=== PATIENT | male | born 1960 | race Caucasian/White ===

== ENCOUNTER 2017-10-31 13:39 | Emergency (ER) | payer MEDICARE, MEDICAID, SELFPAY ==
[2017-10-31 14:09] VITALS: BP 162/78; PULSE 86; RESP 14; TEMP 37.9; O2SAT 98; BMI 28.0
--- NOTE | 2017-10-31 15:57 | ED.LOWEXIN ---
HPI - Extremity Injury (Lower) <IFRAH Sol - Last Filed: 10/31/17 21:45> General Chief Complaint: Extremity Injury, Lower Stated Complaint: CUT ON RIGHT FOOT Time Seen by Provider: 10/31/17 15:57 History of Present Illness HPI Narrative: 57-year-old male with history of type 2 diabetes and renal failure here for complaint of redness to his right lower extremity. Patient has had history of diabetic neuropathy and noticed that he had a laceration to his ball of his right foot 2 days ago when he started noticing swelling to his right ankle. He reports that he has had chills and low-grade fever as well. He denies any drainage from the foot. Denies any trauma to the area. Patient is currently receiving dialysis due to the renal failure. No other concerns or complaints at this time. Related Data Home Medications Medication Instructions Recorded Confirmed acetaminophen-codeine 1 tab PO #0 06/25/16 amlodipine 10 mg PO QDAY #0 06/25/16 calcitriol [Rocaltrol] 0.25 mcg PO SEE INSTRUCTIONS #0 06/25/16 calcium acetate 667 mg PO SEE INSTRUCTIONS #0 06/25/16 metoprolol tartrate 100 mg PO BID #0 06/25/16 sodium bicarbonate 650 mg PO TID #0 06/25/16 vit B comp no.1-bjqlg-Y-biotin 1 tab PO #0 06/25/16 [Nephro-Melissa Rx] furosemide 80 mg PO BID #0 05/05/17 lisinopril 5 mg PO QDAY #0 05/05/17 Previous Rx's Medication Instructions Recorded clindamycin HCl 300 mg PO QID #28 cap 10/31/17 levofloxacin [Levaquin] 500 mg PO Q48H #3 tab 10/31/17 Allergies Allergy/AdvReac Type Severity Reaction Status Date / Time No Known Drug Allergies Allergy Verified 10/31/17 16:26 Review of Systems <IFRAH Sol - Last Filed: 10/31/17 21:45> Constitutional Reports chills and Reports fever(s) Eyes Denies change in vision, Denies eye discharge, Denies irritation and Denies loss of vision ENT Ears, Nose, Mouth, and Throat: Denies change in voice, Denies neck pain and Denies sore throat Cardiovascular Denies chest pain, Denies irregular heart rhythm, Denies lightheadedness, Denies palpitations, Denies dyspnea, Denies dyspnea on exertion and Denies orthopnea Respiratory Denies cough, Denies dyspnea, Denies dyspnea on exertion and Denies wheezing Gastrointestinal Gastrointestinal: Denies abdominal pain, Denies change in bowel habits, Denies diarrhea, Denies nausea and Denies vomiting Genitourinary Denies hematuria, Denies flank pain, Denies urinary incontinence and Denies urinary urgency Musculoskeletal Denies neck pain Comments: Laceration to right ball of foot and redness to the right foot ankle and to tib-fib area Integumentary/Breasts Denies pruritus, Denies erythema, Denies rash and Denies wounds Neurologic Denies confusion and Denies loss of vision Psychiatric Denies anxiety, Denies confusion, Denies depression, Denies homicidal ideation and Denies suicidal ideation Endocrine Denies palpitations Hematologic/Lymphatic Denies easy bruising Allergic/Immunologic Denies wheezing Exam <IFRAH Sol - Last Filed: 10/31/17 21:45> Initial Vital Signs Initial Vital Signs: Vital Signs Temperature 100.2 F H 10/31/17 14:09 Pulse Rate 86 10/31/17 14:09 Respiratory Rate 14 10/31/17 14:09 Blood Pressure 162/78 H 10/31/17 14:09 Pulse Oximetry 98 10/31/17 14:09 Const General: cooperative and well developed Nutritional Appearance: well nourished Orientation: alert, awake, oriented x3 and not confused [facility] Mouth: oral mucosae normal and moist mucous membranes Eyes Conjunctivae: conjunctivae normal Sclera: sclerae normal Pupils: PERRL EOM: EOM intact bilaterally Resp Effort & Inspection: normal respiratory effort, able to speak in complete sentences, no respiratory distress and no use of accessory muscles Auscultation: clear to auscultation bilaterally, no rales, no rhonchi and no wheezes Cardio Rate: regular rate Rhythm: regular rhythm Heart Sounds: no click, no gallops, no murmurs and no rubs Pulses: normal peripheral pulses GI Inspection: non-distended Palpation: soft, no hepatosplenomegaly, No guarding, No pulsatile mass and No tender Auscultation: normal bowel sounds General: No CVA tenderness Neuro General: alert and oriented x3 Speech: speech normal Extrem Other: 2 cm laceration to the right ball of foot. Slight erythema to the right foot and up the right leg into the tib-fib area. Distal cap refill less than 2 sec. Distal range of motion is intact. Distal sensation is decreased secondary to diabetic neuropathy <Shama Geronimo DO - Last Filed: 11/01/17 08:19> Initial Vital Signs Initial Vital Signs: Vital Signs Temperature 100.2 F H 10/31/17 14:09 Pulse Rate 86 10/31/17 14:09 Respiratory Rate 14 10/31/17 14:09 Blood Pressure 162/78 H 10/31/17 14:09 Pulse Oximetry 98 10/31/17 14:09 Course <IFRAH Sol - Last Filed: 10/31/17 21:45> Orders Ordered: Discontinued Medications Clindamycin Phosphate (Cleocin) 600 mg in 50 mls @ 50 mls/hr IV NOW ONE Stop: 10/31/17 17:17 Last Infusion: 10/31/17 17:57 Dose: 0 mls/hr Admin: 10/31/17 16:37 Dose: 50 mls/hr Levofloxacin (Levaquin) 750 mg PO NOW ONE Stop: 10/31/17 17:17 Last Admin: 10/31/17 17:23 Dose: 750 mg Vital Signs - 8 hr 10/31/17 14:09 10/31/17 16:06 10/31/17 18:00 Temperature 100.2 F H Pulse Rate 86 85 80 Respiratory Rate 14 17 18 Blood Pressure 162/78 H Blood Pressure [Left Arm] 136/75 H Blood Pressure [Right Arm] 153/68 H Pulse Oximetry 98 98 98 10/31/17 18:07 Temperature 98.6 F Pulse Rate Respiratory Rate Blood Pressure Blood Pressure [Left Arm] Blood Pressure [Right Arm] Pulse Oximetry <Shama Geronimo DO - Last Filed: 11/01/17 08:19> Orders Ordered: Discontinued Medications Clindamycin Phosphate (Cleocin) 600 mg in 50 mls @ 50 mls/hr IV NOW ONE Stop: 10/31/17 17:17 Last Infusion: 10/31/17 17:57 Dose: 0 mls/hr Admin: 10/31/17 16:37 Dose: 50 mls/hr Levofloxacin (Levaquin) 750 mg PO NOW ONE Stop: 10/31/17 17:17 Last Admin: 10/31/17 17:23 Dose: 750 mg Vital Signs - 8 hr 10/31/17 14:09 10/31/17 16:06 10/31/17 18:00 Temperature 100.2 F H Pulse Rate 86 85 80 Respiratory Rate 14 18 Blood Pressure 162/78 H Blood Pressure [Left Arm] 136/75 H Blood Pressure [Right Arm] 153/68 H Pulse Oximetry 98 98 98 10/31/17 18:07 Temperature 98.6 F Pulse Rate Respiratory Rate Blood Pressure Blood Pressure [Left Arm] Blood Pressure [Right Arm] Pulse Oximetry MDM - Extremity Injury (Lower) <IFRAH Sol - Last Filed: 10/31/17 21:45> Lab Data Result diagrams: 10/31/17 16:14 10/31/17 16:14 Lab Results 10/31/17 10/31/17 10/31/17 Range/Units 16:14 16:14 16:14 WBC 14.2 H (4.5-11.0) X10^3/uL RBC 2.98 L (4.5-5.9) X10^6/uL Hgb 9.1 L (13.5-17.5) g/dL Hct 27.9 L (41-53) % MCV 93.8 (80-100) fL MCH 30.6 (26-34) PG MCHC 32.6 (30-36) % RDW 14.0 (11.6-14.8) % Plt Count 183 (150-400) X10^3/uL Neut % (Auto) 85.3 H (50-75) % Lymph % (Auto) 4.6 L (25-40) % Grundy % (Auto) 9.5 (3-14) % Eos % (Auto) 0.3 L (2-4) % Baso % (Auto) 0.3 (0-2) % Neut # (Auto) 31187 H (2466-9478) /uL Sodium 138 (137-145) mmol/L Potassium 4.7 (3.4-5.1) mmol/L Chloride 97 L (98-107) mmol/L Carbon Dioxide 26 (22-32) mmol/L BUN 73 H (9-20) mg/dL Creatinine 10.70 H* (0.66-1.25) mg/dL Estimated GFR 5.0 L (>60) mL/min BUN/Creatinine Ratio 6.8 (6-22) Glucose 127 H (70-100) mg/dL Lactate (0.7-2.1) mmol/L Calcium 8.5 (8.4-10.2) mg/dL Total Bilirubin 0.6 (0.2-1.3) mg/dL AST 12 L (17-59) IU/L ALT 17 L (21-72) IU/L Alkaline Phosphatase 80 (38-126) U/L Total Protein 7.1 (6.3-8.2) g/dL Albumin 3.9 (3.5-5.0) g/dL Globulin 3.2 (1.7-4.1) g/dL Albumin/Globulin Ratio 1.2 (1.0-2.8) Procalcitonin 0.93 H (<0.5) ng/mL 10/31/17 Range/Units 16:14 WBC (4.5-11.0) X10^3/uL RBC (4.5-5.9) X10^6/uL Hgb (13.5-17.5) g/dL Hct (41-53) % MCV (80-100) fL MCH (26-34) PG MCHC (30-36) % RDW (11.6-14.8) % Plt Count (150-400) X10^3/uL Neut % (Auto) (50-75) % Lymph % (Auto) (25-40) % Grundy % (Auto) (3-14) % Eos % (Auto) (2-4) % Baso % (Auto) (0-2) % Neut # (Auto) (9750-1443) /uL Sodium (137-145) mmol/L Potassium (3.4-5.1) mmol/L Chloride (98-107) mmol/L Carbon Dioxide (22-32) mmol/L BUN (9-20) mg/dL Creatinine (0.66-1.25) mg/dL Estimated GFR (>60) mL/min BUN/Creatinine Ratio (6-22) Glucose (70-100) mg/dL Lactate 0.6 L (0.7-2.1) mmol/L Calcium (8.4-10.2) mg/dL Total Bilirubin (0.2-1.3) mg/dL AST (17-59) IU/L ALT (21-72) IU/L Alkaline Phosphatase (38-126) U/L Total Protein (6.3-8.2) g/dL Albumin (3.5-5.0) g/dL Globulin (1.7-4.1) g/dL Albumin/Globulin Ratio (1.0-2.8) Procalcitonin (<0.5) ng/mL Imaging Data foot: Radiologist's impression: Patient: Juan Fried MR#: [id number] : 1960 Acct:[id number] Age/Sex: 57 / M Date of Service: 10/31/17 Loc: ED Accession Number: [id number] Procedure: XR foot RT min 3V Ordering Provider: Victor Hugo Pedro PROCEDURE: XR FOOT RT MIN 3V INDICATIONS: possible right foot injury,wound,neuropathy of feet TECHNIQUE: 3 views of the foot were acquired. COMPARISON: None. FINDINGS: Bones: No fractures or dislocations. No suspicious bony lesions. Posterior calcaneal spurring Soft tissues: No tibiotalar joint effusion. Achilles tendon appears normal. There are extensive vascular calcifications. IMPRESSION: No fracture or focal osseous destruction. Posterior calcaneal spur. Extensive vascular calcifications. Dictated by: Eber Guillen M.D. on 10/31/2017 at 17:39 Approved by: Eber Guillen M.D. on 10/31/2017 at 17:57 [facility] Narrative Medical decision making narrative: Signs and symptoms presents as starting cellulitis to the right lower extremity secondary to a laceration to his ball of his foot from a unknown origin. Laceration to his foot is dressed with bacitracin and dressing. Patient states his tetanus is up-to-date. He was treated with IV clindamycin and oral Levaquin. Will try oral antibiotics with close follow-up. He is prescribed oral clindamycin and also Levaquin orally with Levaquin dosing based on his GFR which was obtained today and is 10. Recommend podiatry referral patient is instructed to follow up with his primary care provider in the next day or 2 for re-evaluation and podiatry referral. Blood cultures and wound cultures are pending. [id number] Tylenol as needed for any discomfort. For any worsening symptoms return to the emergency room. <Shama Grazyna, DO - Last Filed: 11/01/17 08:19> Lab Data Lab Results 10/31/17 10/31/17 10/31/17 Range/Units 16:14 16:14 16:14 WBC 14.2 H (4.5-11.0) X10^3/uL RBC 2.98 L (4.5-5.9) X10^6/uL Hgb 9.1 L (13.5-17.5) g/dL Hct 27.9 L (41-53) % MCV 93.8 (80-100) fL MCH 30.6 (26-34) PG MCHC 32.6 (30-36) % RDW 14.0 (11.6-14.8) % Plt Count 183 (150-400) X10^3/uL Neut % (Auto) 85.3 H (50-75) % Lymph % (Auto) 4.6 L (25-40) % Grundy % (Auto) 9.5 (3-14) % Eos % (Auto) 0.3 L (2-4) % Baso % (Auto) 0.3 (0-2) % Neut # (Auto) 14986 H (2813-9063) /uL Sodium 138 (137-145) mmol/L Potassium 4.7 (3.4-5.1) mmol/L Chloride 97 L (98-107) mmol/L Carbon Dioxide 26 (22-32) mmol/L BUN 73 H (9-20) mg/dL Creatinine 10.70 H* (0.66-1.25) mg/dL Estimated GFR 5.0 L (>60) mL/min BUN/Creatinine Ratio 6.8 (6-22) Glucose 127 H (70-100) mg/dL Lactate (0.7-2.1) mmol/L Calcium 8.5 (8.4-10.2) mg/dL Total Bilirubin 0.6 (0.2-1.3) mg/dL AST 12 L (17-59) IU/L ALT 17 L (21-72) IU/L Alkaline Phosphatase 80 (38-126) U/L Total Protein 7.1 (6.3-8.2) g/dL Albumin 3.9 (3.5-5.0) g/dL Globulin 3.2 (1.7-4.1) g/dL Albumin/Globulin Ratio 1.2 (1.0-2.8) Procalcitonin 0.93 H (<0.5) ng/mL 10/31/17 Range/Units 16:14 WBC (4.5-11.0) X10^3/uL RBC (4.5-5.9) X10^6/uL Hgb (13.5-17.5) g/dL Hct (41-53) % MCV (80-100) fL MCH (26-34) PG MCHC (30-36) % RDW (11.6-14.8) % Plt Count (150-400) X10^3/uL Neut % (Auto) (50-75) % Lymph % (Auto) (25-40) % Grundy % (Auto) (3-14) % Eos % (Auto) (2-4) % Baso % (Auto) (0-2) % Neut # (Auto) (4923-3176) /uL Sodium (137-145) mmol/L Potassium (3.4-5.1) mmol/L Chloride (98-107) mmol/L Carbon Dioxide (22-32) mmol/L BUN (9-20) mg/dL Creatinine (0.66-1.25) mg/dL Estimated GFR (>60) mL/min BUN/Creatinine Ratio (6-22) Glucose (70-100) mg/dL Lactate 0.6 L (0.7-2.1) mmol/L Calcium (8.4-10.2) mg/dL Total Bilirubin (0.2-1.3) mg/dL AST (17-59) IU/L ALT (21-72) IU/L Alkaline Phosphatase (38-126) U/L Total Protein (6.3-8.2) g/dL Albumin (3.5-5.0) g/dL Globulin (1.7-4.1) g/dL Albumin/Globulin Ratio (1.0-2.8) Procalcitonin (<0.5) ng/mL Discharge Plan Departure Patient Disposition: Home, Self-Care Clinical Impression: Cellulitis of right lower extremity Discharge Date/Time: 07/18/18 18:42 Interventions: ED Discharge Assessment Last Done: 10/31/17 18:42 Instructions: DI for Cellulitis -- Adult Activity Restrictions/Additional Instructions: Signs and symptoms presents starting infection call cellulitis to the right lower leg. You have been placed on antibiotics use as directed. Close follow up with her primary care provider in the next day or 2 for re-evaluation to ensure you are improving. Use [id number] Tylenol as needed for any discomfort. Recommend podiatry referral when you talk with her primary care provider. For any worsening symptoms return to the emergency room. Prescriptions: New clindamycin HCl 300 mg capsule 300 mg PO QID Qty: 28 RF: 0 levofloxacin [Levaquin] 500 mg tablet 500 mg PO Q48H Qty: 3 RF: 0 No Action acetaminophen-codeine 30 MG/300 MG tablet 1 tab PO Qty: 0 RF: 0 calcitriol [Rocaltrol] 0.25 MCG capsule 0.25 mcg PO SEE INSTRUCTIONS Qty: 0 RF: 0 metoprolol tartrate 100 MG tablet 100 mg PO BID Qty: 0 RF: 0 vit B comp no.9-rvuxb-E-biotin [Nephro-Melissa Rx] 1 EACH tablet 1 tab PO Qty: 0 RF: 0 sodium bicarbonate 650 MG tablet 650 mg PO TID Qty: 0 RF: 0 amlodipine 10 MG tablet 10 mg PO QDAY Qty: 0 RF: 0 calcium acetate 667 MG capsule 667 mg PO SEE INSTRUCTIONS Qty: 0 RF: 0 furosemide 40 MG tablet 80 mg PO BID Qty: 0 RF: 0 lisinopril 5 MG tablet 5 mg PO QDAY Qty: 0 RF: 0 Referrals: Daivd Wilson MD [Primary Care Provider] - <Shama Geronimo DO - Last Filed: 11/01/17 08:19> [facility] ED Attending Ralf Attestation: I was immediately available in the department for consultation. Documentation has been reviewed. I agree with assessment and plan.
[2017-10-31 16:06] VITALS: BP 153/68; PULSE 85; RESP 17; O2SAT 98
[2017-10-31 16:31] LABS: Add Manual Diff / Slide Review NO; Basophils Percent Auto 0.3 % (0-2); Eosinophils Percent Auto 0.3 % (2-4); Hematocrit 27.9 % (41-53); Hemoglobin 9.1 g/dL (13.5-17.5); Lymphocytes Percent Auto 4.6 % (25-40); Mean Corpuscular HGB Conc 32.6 % (30-36); Mean Corpuscular Hemoglobin 30.6 PG (26-34); Mean Corpuscular Volume 93.8 fL (80-100); Monocytes Percent Auto 9.5 % (3-14); Neutrophils Absolute Auto 12100 /uL (3000-5900); Neutrophils Percent Auto 85.3 % (50-75); Platelet Count 183 X10^3/uL (150-400); Red Blood Cell Count 2.98 X10^6/uL (4.5-5.9); White Blood Cell Count 14.2 X10^3/uL (4.5-11.0)
[2017-10-31] MEDS: CLINDAMYCIN 600 MG/50 ML PIGGYBACK 50 MG IV (16:37)
[2017-10-31 16:46] LABS: Alanine Aminotransferase 17 IU/L (21-72); Albumin 3.9 g/dL (3.5-5.0); Albumin Globulin Ratio 1.2 (1.0-2.8); Alkaline Phosphatase 80 U/L (38-126); Aspartate Aminotransferase 12 IU/L (17-59); BUN Creatinine Ratio 6.8 (6-22); Bilirubin Total 0.6 mg/dL (0.2-1.3); Blood Urea Nitrogen 73 mg/dL (9-20); Calcium 8.5 mg/dL (8.4-10.2); Carbon Dioxide 26 mmol/L (22-32); Chloride 97 mmol/L (98-107); Globulin 3.2 g/dL (1.7-4.1); Glucose 127 mg/dL (70-100); HEMOLYSIS < 15 (0-50); Potassium 4.7 mmol/L (3.4-5.1); Sodium 138 mmol/L (137-145); Total Protein 7.1 g/dL (6.3-8.2)
[2017-10-31 16:47] LABS: Lactate (Lactic Acid) 0.6 mmol/L (0.7-2.1)
[2017-10-31 16:56] LABS: Procalcitonin 0.93 ng/mL (<0.5)
--- NOTE | 2017-10-31 17:07 | DI.RAD.S_ITS ---
PROCEDURE: XR FOOT RT MIN 3V INDICATIONS: possible right foot injury,wound,neuropathy of feet TECHNIQUE: 3 views of the foot were acquired. COMPARISON: None. FINDINGS: Bones: No fractures or dislocations. No suspicious bony lesions. Posterior calcaneal spurring Soft tissues: No tibiotalar joint effusion. Achilles tendon appears normal. There are extensive vascular calcifications. IMPRESSION: No fracture or focal osseous destruction. Posterior calcaneal spur. Extensive vascular calcifications. Dictated by: Eber Guillen M.D. on 10/31/2017 at 17:39 Approved by: Eber Guillen M.D. on 10/31/2017 at 17:57
[2017-10-31] MEDS: levoFLOXacin 250 MG TABLET 750 MG PO (17:23)
--- NOTE | 2017-10-31 17:52 | ED_ITS ---
HPI - Extremity Injury (Lower) <IFRAH Sol - Last Filed: 10/31/17 21:45> General Chief Complaint: Extremity Injury, Lower Stated Complaint: CUT ON RIGHT FOOT Time Seen by Provider: 10/31/17 15:57 History of Present Illness HPI Narrative: 57-year-old male with history of type 2 diabetes and renal failure here for complaint of redness to his right lower extremity. Patient has had history of diabetic neuropathy and noticed that he had a laceration to his ball of his right foot 2 days ago when he started noticing swelling to his right ankle. He reports that he has had chills and low-grade fever as well. He denies any drainage from the foot. Denies any trauma to the area. Patient is currently receiving dialysis due to the renal failure. No other concerns or complaints at this time. Related Data Home Medications Medication Instructions Recorded Confirmed acetaminophen-codeine 1 tab PO #0 06/25/16 amlodipine 10 mg PO QDAY #0 06/25/16 calcitriol [Rocaltrol] 0.25 mcg PO SEE INSTRUCTIONS #0 06/25/16 calcium acetate 667 mg PO SEE INSTRUCTIONS #0 06/25/16 metoprolol tartrate 100 mg PO BID #0 06/25/16 sodium bicarbonate 650 mg PO TID #0 06/25/16 vit B comp no.0-spkbo-M-biotin 1 tab PO #0 06/25/16 [Nephro-Melissa Rx] furosemide 80 mg PO BID #0 05/05/17 lisinopril 5 mg PO QDAY #0 05/05/17 Previous Rx's Medication Instructions Recorded clindamycin HCl 300 mg PO QID #28 cap 10/31/17 levofloxacin [Levaquin] 500 mg PO Q48H #3 tab 10/31/17 Allergies Allergy/AdvReac Type Severity Reaction Status Date / Time No Known Drug Allergies Allergy Verified 10/31/17 16:26 Review of Systems <IFRAH Sol - Last Filed: 10/31/17 21:45> Constitutional Reports chills and Reports fever(s) Eyes Denies change in vision, Denies eye discharge, Denies irritation and Denies loss of vision ENT Ears, Nose, Mouth, and Throat: Denies change in voice, Denies neck pain and Denies sore throat Cardiovascular Denies chest pain, Denies irregular heart rhythm, Denies lightheadedness, Denies palpitations, Denies dyspnea, Denies dyspnea on exertion and Denies orthopnea Respiratory Denies cough, Denies dyspnea, Denies dyspnea on exertion and Denies wheezing Gastrointestinal Gastrointestinal: Denies abdominal pain, Denies change in bowel habits, Denies diarrhea, Denies nausea and Denies vomiting Genitourinary Denies hematuria, Denies flank pain, Denies urinary incontinence and Denies urinary urgency Musculoskeletal Denies neck pain Comments: Laceration to right ball of foot and redness to the right foot ankle and to tib-fib area Integumentary/Breasts Denies pruritus, Denies erythema, Denies rash and Denies wounds Neurologic Denies confusion and Denies loss of vision Psychiatric Denies anxiety, Denies confusion, Denies depression, Denies homicidal ideation and Denies suicidal ideation Endocrine Denies palpitations Hematologic/Lymphatic Denies easy bruising Allergic/Immunologic Denies wheezing Exam <IFRAH Sol - Last Filed: 10/31/17 21:45> Initial Vital Signs Initial Vital Signs: Vital Signs Temperature 100.2 F H 10/31/17 14:09 Pulse Rate 86 10/31/17 14:09 Respiratory Rate 14 10/31/17 14:09 Blood Pressure 162/78 H 10/31/17 14:09 Pulse Oximetry 98 10/31/17 14:09 Const General: cooperative and well developed Nutritional Appearance: well nourished Orientation: alert, awake, oriented x3 and not confused [facility] Mouth: oral mucosae normal and moist mucous membranes Eyes Conjunctivae: conjunctivae normal Sclera: sclerae normal Pupils: PERRL EOM: EOM intact bilaterally Resp Effort & Inspection: normal respiratory effort, able to speak in complete sentences, no respiratory distress and no use of accessory muscles Auscultation: clear to auscultation bilaterally, no rales, no rhonchi and no wheezes Cardio Rate: regular rate Rhythm: regular rhythm Heart Sounds: no click, no gallops, no murmurs and no rubs Pulses: normal peripheral pulses GI Inspection: non-distended Palpation: soft, no hepatosplenomegaly, No guarding, No pulsatile mass and No tender Auscultation: normal bowel sounds General: No CVA tenderness Neuro General: alert and oriented x3 Speech: speech normal Extrem Other: 2 cm laceration to the right ball of foot. Slight erythema to the right foot and up the right leg into the tib-fib area. Distal cap refill less than 2 sec. Distal range of motion is intact. Distal sensation is decreased secondary to diabetic neuropathy <Shama Geronimo DO - Last Filed: 11/01/17 08:19> Initial Vital Signs Initial Vital Signs: Vital Signs Temperature 100.2 F H 10/31/17 14:09 Pulse Rate 86 10/31/17 14:09 Respiratory Rate 14 10/31/17 14:09 Blood Pressure 162/78 H 10/31/17 14:09 Pulse Oximetry 98 10/31/17 14:09 Course <IFRAH Sol - Last Filed: 10/31/17 21:45> Orders Ordered: Discontinued Medications Clindamycin Phosphate (Cleocin) 600 mg in 50 mls @ 50 mls/hr IV NOW ONE Stop: 10/31/17 17:17 Last Infusion: 10/31/17 17:57 Dose: 0 mls/hr Admin: 10/31/17 16:37 Dose: 50 mls/hr Levofloxacin (Levaquin) 750 mg PO NOW ONE Stop: 10/31/17 17:17 Last Admin: 10/31/17 17:23 Dose: 750 mg Vital Signs - 8 hr 10/31/17 14:09 10/31/17 16:06 10/31/17 18:00 Temperature 100.2 F H Pulse Rate 86 85 80 Respiratory Rate 14 17 18 Blood Pressure 162/78 H Blood Pressure [Left Arm] 136/75 H Blood Pressure [Right Arm] 153/68 H Pulse Oximetry 98 98 98 10/31/17 18:07 Temperature 98.6 F Pulse Rate Respiratory Rate Blood Pressure Blood Pressure [Left Arm] Blood Pressure [Right Arm] Pulse Oximetry <Shama Geronimo DO - Last Filed: 11/01/17 08:19> Orders Ordered: Discontinued Medications Clindamycin Phosphate (Cleocin) 600 mg in 50 mls @ 50 mls/hr IV NOW ONE Stop: 10/31/17 17:17 Last Infusion: 10/31/17 17:57 Dose: 0 mls/hr Admin: 10/31/17 16:37 Dose: 50 mls/hr Levofloxacin (Levaquin) 750 mg PO NOW ONE Stop: 10/31/17 17:17 Last Admin: 10/31/17 17:23 Dose: 750 mg Vital Signs - 8 hr 10/31/17 14:09 10/31/17 16:06 10/31/17 18:00 Temperature 100.2 F H Pulse Rate 86 85 80 Respiratory Rate 14 18 Blood Pressure 162/78 H Blood Pressure [Left Arm] 136/75 H Blood Pressure [Right Arm] 153/68 H Pulse Oximetry 98 98 98 10/31/17 18:07 Temperature 98.6 F Pulse Rate Respiratory Rate Blood Pressure Blood Pressure [Left Arm] Blood Pressure [Right Arm] Pulse Oximetry MDM - Extremity Injury (Lower) <IFRAH Sol - Last Filed: 10/31/17 21:45> Lab Data Result diagrams: 10/31/17 16:14 10/31/17 16:14 Lab Results 10/31/17 10/31/17 10/31/17 Range/Units 16:14 16:14 16:14 WBC 14.2 H (4.5-11.0) X10^3/uL RBC 2.98 L (4.5-5.9) X10^6/uL Hgb 9.1 L (13.5-17.5) g/dL Hct 27.9 L (41-53) % MCV 93.8 (80-100) fL MCH 30.6 (26-34) PG MCHC 32.6 (30-36) % RDW 14.0 (11.6-14.8) % Plt Count 183 (150-400) X10^3/uL Neut % (Auto) 85.3 H (50-75) % Lymph % (Auto) 4.6 L (25-40) % Miller % (Auto) 9.5 (3-14) % Eos % (Auto) 0.3 L (2-4) % Baso % (Auto) 0.3 (0-2) % Neut # (Auto) 76161 H (4482-1233) /uL Sodium 138 (137-145) mmol/L Potassium 4.7 (3.4-5.1) mmol/L Chloride 97 L (98-107) mmol/L Carbon Dioxide 26 (22-32) mmol/L BUN 73 H (9-20) mg/dL Creatinine 10.70 H* (0.66-1.25) mg/dL Estimated GFR 5.0 L (>60) mL/min BUN/Creatinine Ratio 6.8 (6-22) Glucose 127 H (70-100) mg/dL Lactate (0.7-2.1) mmol/L Calcium 8.5 (8.4-10.2) mg/dL Total Bilirubin 0.6 (0.2-1.3) mg/dL AST 12 L (17-59) IU/L ALT 17 L (21-72) IU/L Alkaline Phosphatase 80 (38-126) U/L Total Protein 7.1 (6.3-8.2) g/dL Albumin 3.9 (3.5-5.0) g/dL Globulin 3.2 (1.7-4.1) g/dL Albumin/Globulin Ratio 1.2 (1.0-2.8) Procalcitonin 0.93 H (<0.5) ng/mL 10/31/17 Range/Units 16:14 WBC (4.5-11.0) X10^3/uL RBC (4.5-5.9) X10^6/uL Hgb (13.5-17.5) g/dL Hct (41-53) % MCV (80-100) fL MCH (26-34) PG MCHC (30-36) % RDW (11.6-14.8) % Plt Count (150-400) X10^3/uL Neut % (Auto) (50-75) % Lymph % (Auto) (25-40) % Miller % (Auto) (3-14) % Eos % (Auto) (2-4) % Baso % (Auto) (0-2) % Neut # (Auto) (1983-5839) /uL Sodium (137-145) mmol/L Potassium (3.4-5.1) mmol/L Chloride (98-107) mmol/L Carbon Dioxide (22-32) mmol/L BUN (9-20) mg/dL Creatinine (0.66-1.25) mg/dL Estimated GFR (>60) mL/min BUN/Creatinine Ratio (6-22) Glucose (70-100) mg/dL Lactate 0.6 L (0.7-2.1) mmol/L Calcium (8.4-10.2) mg/dL Total Bilirubin (0.2-1.3) mg/dL AST (17-59) IU/L ALT (21-72) IU/L Alkaline Phosphatase (38-126) U/L Total Protein (6.3-8.2) g/dL Albumin (3.5-5.0) g/dL Globulin (1.7-4.1) g/dL Albumin/Globulin Ratio (1.0-2.8) Procalcitonin (<0.5) ng/mL Imaging Data foot: Radiologist's impression: Patient: Juan Fried MR#: [id number] : 1960 Acct:[id number] Age/Sex: 57 / M Date of Service: 10/31/17 Loc: ED Accession Number: [id number] Procedure: XR foot RT min 3V Ordering Provider: Victor Hugo ePdro PROCEDURE: XR FOOT RT MIN 3V INDICATIONS: possible right foot injury,wound,neuropathy of feet TECHNIQUE: 3 views of the foot were acquired. COMPARISON: None. FINDINGS: Bones: No fractures or dislocations. No suspicious bony lesions. Posterior calcaneal spurring Soft tissues: No tibiotalar joint effusion. Achilles tendon appears normal. There are extensive vascular calcifications. IMPRESSION: No fracture or focal osseous destruction. Posterior calcaneal spur. Extensive vascular calcifications. Dictated by: Eber Guillen M.D. on 10/31/2017 at 17:39 Approved by: Eber Guillen M.D. on 10/31/2017 at 17:57 [facility] Narrative Medical decision making narrative: Signs and symptoms presents as starting cellulitis to the right lower extremity secondary to a laceration to his ball of his foot from a unknown origin. Laceration to his foot is dressed with bacitracin and dressing. Patient states his tetanus is up-to-date. He was treated with IV clindamycin and oral Levaquin. Will try oral antibiotics with close follow-up. He is prescribed oral clindamycin and also Levaquin orally with Levaquin dosing based on his GFR which was obtained today and is 10. Recommend podiatry referral patient is instructed to follow up with his primary care provider in the next day or 2 for re-evaluation and podiatry referral. Blood cultures and wound cultures are pending. [id number] Tylenol as needed for any discomfort. For any worsening symptoms return to the emergency room. <Shama Grazyna, DO - Last Filed: 11/01/17 08:19> Lab Data Lab Results 10/31/17 10/31/17 10/31/17 Range/Units 16:14 16:14 16:14 WBC 14.2 H (4.5-11.0) X10^3/uL RBC 2.98 L (4.5-5.9) X10^6/uL Hgb 9.1 L (13.5-17.5) g/dL Hct 27.9 L (41-53) % MCV 93.8 (80-100) fL MCH 30.6 (26-34) PG MCHC 32.6 (30-36) % RDW 14.0 (11.6-14.8) % Plt Count 183 (150-400) X10^3/uL Neut % (Auto) 85.3 H (50-75) % Lymph % (Auto) 4.6 L (25-40) % Miller % (Auto) 9.5 (3-14) % Eos % (Auto) 0.3 L (2-4) % Baso % (Auto) 0.3 (0-2) % Neut # (Auto) 06353 H (9543-3346) /uL Sodium 138 (137-145) mmol/L Potassium 4.7 (3.4-5.1) mmol/L Chloride 97 L (98-107) mmol/L Carbon Dioxide 26 (22-32) mmol/L BUN 73 H (9-20) mg/dL Creatinine 10.70 H* (0.66-1.25) mg/dL Estimated GFR 5.0 L (>60) mL/min BUN/Creatinine Ratio 6.8 (6-22) Glucose 127 H (70-100) mg/dL Lactate (0.7-2.1) mmol/L Calcium 8.5 (8.4-10.2) mg/dL Total Bilirubin 0.6 (0.2-1.3) mg/dL AST 12 L (17-59) IU/L ALT 17 L (21-72) IU/L Alkaline Phosphatase 80 (38-126) U/L Total Protein 7.1 (6.3-8.2) g/dL Albumin 3.9 (3.5-5.0) g/dL Globulin 3.2 (1.7-4.1) g/dL Albumin/Globulin Ratio 1.2 (1.0-2.8) Procalcitonin 0.93 H (<0.5) ng/mL 10/31/17 Range/Units 16:14 WBC (4.5-11.0) X10^3/uL RBC (4.5-5.9) X10^6/uL Hgb (13.5-17.5) g/dL Hct (41-53) % MCV (80-100) fL MCH (26-34) PG MCHC (30-36) % RDW (11.6-14.8) % Plt Count (150-400) X10^3/uL Neut % (Auto) (50-75) % Lymph % (Auto) (25-40) % Miller % (Auto) (3-14) % Eos % (Auto) (2-4) % Baso % (Auto) (0-2) % Neut # (Auto) (7580-2896) /uL Sodium (137-145) mmol/L Potassium (3.4-5.1) mmol/L Chloride (98-107) mmol/L Carbon Dioxide (22-32) mmol/L BUN (9-20) mg/dL Creatinine (0.66-1.25) mg/dL Estimated GFR (>60) mL/min BUN/Creatinine Ratio (6-22) Glucose (70-100) mg/dL Lactate 0.6 L (0.7-2.1) mmol/L Calcium (8.4-10.2) mg/dL Total Bilirubin (0.2-1.3) mg/dL AST (17-59) IU/L ALT (21-72) IU/L Alkaline Phosphatase (38-126) U/L Total Protein (6.3-8.2) g/dL Albumin (3.5-5.0) g/dL Globulin (1.7-4.1) g/dL Albumin/Globulin Ratio (1.0-2.8) Procalcitonin (<0.5) ng/mL Discharge Plan Departure Patient Disposition: Home, Self-Care Clinical Impression: Cellulitis of right lower extremity Discharge Date/Time: 07/18/18 18:42 Interventions: ED Discharge Assessment Last Done: 10/31/17 18:42 Instructions: DI for Cellulitis -- Adult Activity Restrictions/Additional Instructions: Signs and symptoms presents starting infection call cellulitis to the right lower leg. You have been placed on antibiotics use as directed. Close follow up with her primary care provider in the next day or 2 for re-evaluation to ensure you are improving. Use [id number] Tylenol as needed for any discomfort. Recommend podiatry referral when you talk with her primary care provider. For any worsening symptoms return to the emergency room. Prescriptions: New clindamycin HCl 300 mg capsule 300 mg PO QID Qty: 28 RF: 0 levofloxacin [Levaquin] 500 mg tablet 500 mg PO Q48H Qty: 3 RF: 0 No Action acetaminophen-codeine 30 MG/300 MG tablet 1 tab PO Qty: 0 RF: 0 calcitriol [Rocaltrol] 0.25 MCG capsule 0.25 mcg PO SEE INSTRUCTIONS Qty: 0 RF: 0 metoprolol tartrate 100 MG tablet 100 mg PO BID Qty: 0 RF: 0 vit B comp no.6-djthj-J-biotin [Nephro-Melissa Rx] 1 EACH tablet 1 tab PO Qty: 0 RF: 0 sodium bicarbonate 650 MG tablet 650 mg PO TID Qty: 0 RF: 0 amlodipine 10 MG tablet 10 mg PO QDAY Qty: 0 RF: 0 calcium acetate 667 MG capsule 667 mg PO SEE INSTRUCTIONS Qty: 0 RF: 0 furosemide 40 MG tablet 80 mg PO BID Qty: 0 RF: 0 lisinopril 5 MG tablet 5 mg PO QDAY Qty: 0 RF: 0 Referrals: David Wilson MD [Primary Care Provider] - <Shama Geronimo DO - Last Filed: 11/01/17 08:19> [facility] ED Attending Ralf Attestation: I was immediately available in the department for consultation. Documentation has been reviewed. I agree with assessment and plan.
[2017-10-31 18:00] VITALS: BP 136/75; PULSE 80; RESP 18; O2SAT 98
[2017-10-31 18:07] VITALS: TEMP 37
== END 2017-10-31 18:42 | disposition home or self-care (01) ==
PROVIDERS: Emergency Provider Nurse Practitioner Family; PCP Specialist
DX: L03.115 Cellulitis of right lower limb (principal); E11.9 Type 2 diabetes mellitus without complications
CPT/HCPCS: 36415; 36591; 73630; 80053; 83605; 84145; 85025; 87040; 87070; 87075; 87077; 87147; 87186; 87205; 96374; 99283; 99284

== ENCOUNTER 2018-07-23 13:43 | Emergency (ER) | payer MEDICARE, MEDICAID, SELFPAY ==
[2018-07-23 13:54] VITALS: BP 153/63; PULSE 70; RESP 18; TEMP 36.7; O2SAT 96; BMI 29.5
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
[2018-07-23 16:37] VITALS: BP 185/50; PULSE 71; RESP 17; O2SAT 99
== END 2018-07-23 16:51 | disposition home or self-care (01) ==
PROVIDERS: Emergency Provider Emergency Medicine; PCP Specialist
DX: T25.032A Burn of unspecified degree of left toe(s) (nail), initial encounter (principal)
CPT/HCPCS: 99282

== ENCOUNTER → 2018-07-25 14:11 | Outpatient (CLI) | payer MEDICARE, MEDICAID, SELFPAY | PROVIDERS: PCP Specialist; Visit Provider Family Medicine | DX: E11.621 Type 2 diabetes mellitus with foot ulcer (principal); N18.6 End stage renal disease; Z99.2 Dependence on renal dialysis; T25.332A Burn of third degree of left toe(s) (nail), initial encounter | CPT/HCPCS: 16020; 99203; 99213 ==

== ENCOUNTER → 2018-08-01 09:59 | Outpatient (CLI) | payer MEDICARE, MEDICAID, SELFPAY | PROVIDERS: PCP Specialist; Visit Provider Family Medicine | DX: T25.332A Burn of third degree of left toe(s) (nail), initial encounter (principal); L03.116 Cellulitis of left lower limb; N18.6 End stage renal disease; Z99.2 Dependence on renal dialysis | CPT/HCPCS: 16020; 73630; 87070; 87075; 87186; 87205; 99214 ==

== ENCOUNTER → 2018-08-01 14:34 | Outpatient (CLI) | payer MEDICARE, MEDICAID, SELFPAY ==
--- NOTE | 2018-08-01 | DI.RAD.S_ITS ---
PROCEDURE: XR FOOT LT MIN 3V INDICATIONS: L FOOT EVAL FOR OSTEOMYELITIS TECHNIQUE: 3 views of the foot were acquired. COMPARISON: [facility], CR, XR FOOT RT MIN 3V, 10/31/2017, 17:11. FINDINGS: Bones: No fractures or dislocations. No suspicious bony lesions. No area of osteolytic change is seen with evidence of osteomyelitis. Small vessel calcifications are present, consistent with long-standing diabetes. An area of cutaneous ulceration or gas within the soft tissues cannot be definitively identified but the posterior calcaneal soft tissues appear slightly thinned near the Achilles tendon insertion. Soft tissues: No tibiotalar joint effusion. Achilles tendon appears normal. IMPRESSION: Small vessel calcifications are prominent, long-standing diabetes is presumed. No osteomyelitis or trauma is found. Dictated by: Josias Albert M.D. on 08/01/2018 at 15:23 Approved by: Josias Albert M.D. on 08/01/2018 at 15:24
== END ==
PROVIDERS: PCP Specialist; Visit Provider Family Medicine
DX: T25.332A Burn of third degree of left toe(s) (nail), initial encounter (principal)
CPT/HCPCS: 73630

== ENCOUNTER → 2018-08-08 08:30 | Outpatient (CLI) | payer MEDICARE, MEDICAID, SELFPAY | PROVIDERS: PCP Family Medicine; Visit Provider Family Medicine | DX: E11.621 Type 2 diabetes mellitus with foot ulcer (principal); E11.40 Type 2 diabetes mellitus with diabetic neuropathy, unspecified; T25.332A Burn of third degree of left toe(s) (nail), initial encounter; L03.032 Cellulitis of left toe; N18.6 End stage renal disease; Z99.2 Dependence on renal dialysis | CPT/HCPCS: 16020; 99213 ==

== ENCOUNTER → 2018-08-15 08:30 | Outpatient (CLI) | payer MEDICARE, MEDICAID, SELFPAY | PROVIDERS: PCP Family Medicine; Visit Provider Family Medicine | DX: E11.621 Type 2 diabetes mellitus with foot ulcer (principal); E11.40 Type 2 diabetes mellitus with diabetic neuropathy, unspecified; L97.525 Non-pressure chronic ulcer of other part of left foot with muscle involvement without evidence of necrosis; T25.332A Burn of third degree of left toe(s) (nail), initial encounter; N18.6 End stage renal disease; Z99.2 Dependence on renal dialysis | CPT/HCPCS: 16020 ==

== ENCOUNTER → 2018-08-26 16:40 | Outpatient (CLI) | payer MEDICARE, MEDICAID, SELFPAY ==
[2018-08-26 17:40] LABS: Hemoglobin 8.9 g/dL (13.5-17.5)
== END ==
PROVIDERS: PCP Family Medicine; Visit Provider Orthopaedic Surgery Foot and Ankle Surgery
DX: E11.40 Type 2 diabetes mellitus with diabetic neuropathy, unspecified (principal); E11.621 Type 2 diabetes mellitus with foot ulcer
CPT/HCPCS: 36415; 85014; 85018

== ENCOUNTER → 2018-08-28 09:29 | Outpatient (CLI) | payer MEDICARE, MEDICAID, SELFPAY ==
--- NOTE | 2018-08-28 | DI.US.S_ITS ---
PROCEDURE: US PERIPH VENOUS LOW EXTREM LT INDICATIONS: INFECTION OF LEFT LOWER EXTREMITY TECHNIQUE: Real-time imaging, as well as color and pulse Doppler interrogation, were performed of the lower extremity deep veins from the inguinal ligament to the popliteal fossa. COMPARISON: None. FINDINGS: The common femoral, femoral and popliteal veins are normally compressible, and free of intraluminal thrombus. Color and pulse Doppler demonstrate normal phasic intraluminal flow. There is normal augmentation response to distal compression maneuver. 1.5 cm morphologically normal-appearing enlarged left groin lymph node. IMPRESSION: 1. No deep venous thrombosis identified within the left lower extremity. 2. Enlarged left groin lymph node which may be reactive; however neoplastic adenopathy cannot be excluded and clinical correlation and followup recommended. Dictated by: Tushar PINEDO Interpreted: Paul Whitley MD on 08/28/2018 at 12:10 Approved by: Paul Whitley M.D. on 08/28/2018 at 14:33
== END ==
PROVIDERS: PCP Family Medicine; Visit Provider Physician Assistant
DX: L08.9 Local infection of the skin and subcutaneous tissue, unspecified (principal); R59.0 Localized enlarged lymph nodes
CPT/HCPCS: 93971

== ENCOUNTER → 2019-02-18 11:57 | Outpatient (CLI) | payer MEDICARE, MEDICAID, SELFPAY ==
--- NOTE | 2019-02-18 | DI.RAD.S_ITS ---
PROCEDURE: XR CHEST 2V INDICATIONS: STARTING DIALYSIS TECHNIQUE: 2 views of the chest were acquired. COMPARISON: [facility], , CHEST 2 VIEW, 11/09/2016, 12:04. FINDINGS: Surgical changes and devices: None. Lungs and pleura: Lungs are clear. Mild prominence of the pulmonary vasculature. No pleural effusions or pneumothorax. Mediastinum: Mediastinal contours are normal. Heart size is prominent. Bones and chest wall: No suspicious bony abnormalities. Soft tissues appear unremarkable. IMPRESSION: Mild prominence of the pulmonary vasculature and heart size. Dictated by: Souleymane Elizabeth M.D. on 02/18/2019 at 16:22 Approved by: Souleymane Elizabeth M.D. on 02/18/2019 at 16:23
== END ==
PROVIDERS: PCP Family Medicine; Visit Provider Specialist
DX: N18.6 End stage renal disease (principal); Z99.2 Dependence on renal dialysis
CPT/HCPCS: 71046

== ENCOUNTER 2020-11-19 12:22 | Emergency (ER) | payer MEDICARE, MEDICAID, SELFPAY ==
[2020-11-19] VITALS (34 sets, daily range): BP systolic 91–121; BP diastolic 34–72; PULSE 51–92; RESP 7–29; TEMP 35.8; O2SAT 49–100; BMI 23.0
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
[2020-11-19] MEDS: SODIUM CHLORIDE 0.9% 1,000 ML 1000 ML IV (12:44)
[2020-11-19 12:52] LABS: Add Manual Diff / Slide Review NO; Basophils Absolute Auto 100 /uL (0-100); Basophils Percent Auto 0.3 % (0-2); Eosinophils Absolute Auto 0 /uL (0-450); Eosinophils Percent Auto 0.2 % (2-4); Hematocrit 39.3 % (41-53); Hemoglobin 12.4 g/dL (13.5-17.5); Lymphocytes Absolute Auto 800 /uL (1100-4500); Lymphocytes Percent Auto 5.2 % (25-40); Mean Corpuscular HGB Conc 31.7 % (30-36); Mean Corpuscular Hemoglobin 30.3 PG (26-34); Mean Corpuscular Volume 95.7 fL (80-100); Monocytes Absolute Auto 800 /uL (0-900); Monocytes Percent Auto 4.9 % (3-14); Neutrophils Absolute Auto 14200 /uL (1500-7000); Neutrophils Percent Auto 89.4 % (50-75); Platelet Count 184 X10^3/uL (150-400); Red Cell Distribution Width 18.2 % (11.6-14.8); White Blood Cell Count 15.8 X10^3/uL (4.5-11.0)
[2020-11-19 13:11] LABS: Alanine Aminotransferase 18 IU/L (<50); Albumin 2.8 g/dL (3.5-5.0); Alkaline Phosphatase 107 U/L (38-126); Aspartate Aminotransferase 18 IU/L (17-59); Bilirubin Total 0.6 mg/dL (0.2-1.3); Blood Urea Nitrogen 103 mg/dL (9-20); Calcium 8.2 mg/dL (8.4-10.2); Carbon Dioxide 16 mmol/L (22-32); Chloride 96 mmol/L (98-107); Globulin 2.7 g/dL (1.7-4.1); Glucose 89 mg/dL (80-110); HEMOLYSIS 16 (0-50); Sodium 131 mmol/L (137-145); Total Protein 5.5 g/dL (6.3-8.2)
[2020-11-19 13:14] LABS: Potassium 5.4 mmol/L (3.4-5.1)
[2020-11-19 13:17] LABS: BUN Creatinine Ratio 6.7 (6-22); Estimated Glomerular Filt Rate 3.3 mL/min (>60)
[2020-11-19 13:44] LABS: COVID19 - ADMIT (NP swab/PCR) Negative (Negative)
[2020-11-19] MEDS: LORazepam 2 MG/ML INJ 1 MG IV ×3 (14:09→22:31)
[2020-11-19 19:38] LABS: Adenovirus F 40/41 Not Detected (Not Detect); Astrovirus Not Detected (Not Detect); Campylobacter Not Detected (Not Detect); Clostridium difficile toxin AB Not Detected (Not Detect); Cryptosporidium Not Detected (Not Detect); Cyclospora cayetanensis Not Detected (Not Detect); Entamoeba histolytica Not Detected (Not Detect); Enteroaggregative E.coli Not Detected (Not Detect); Enteropathogenic E.coli Not Detected (Not Detect); Enterotoxigenic E.coli It/st Not Detected (Not Detect); Giardia lamblia Not Detected (Not Detect); Norovirus GI/GII Not Detected (Not Detect); Plesiomonsa shigelloides Not Detected (Not Detect); Rotavirus A Not Detected (Not Detect); Salmonella Not Detected (Not Detect); Sapovirus Not Detected (Not Detect); Shiga-like toxin-prod E.coli Not Detected (Not Detect); Shigella/Enteroinvasive E.coli Not Detected (Not Detect); Vibrio Not Detected (Not Detect); Vibrio cholerae Not Detected (Not Detect); Yersinia enterocolitica Not Detected (Not Detect)
[2020-11-19] MEDS: SODIUM CHLORIDE 0.9% 1,000 ML 150 ML IV (20:10)
--- NOTE | 2020-11-19 20:29 | PC.NURSE ---
Patients son instilled patient's peritoneal dialysis solution and capped PD line. Will return in the AM to help drain. Son also removed patient's BKA for the night.
--- NOTE | 2020-11-19 23:13 | PC.NURSE ---
Walked by pt's room. found pt with head over railing throwing up. Gave pt emesis bag and informed provider. New orders given for zofran. Pt incontinent of stool at this same time.
[2020-11-19] MEDS: ONDANSETRON 4 MG/2 ML INJ IV (23:18)
[2020-11-20] VITALS: PULSE 88; O2SAT 93
[2020-11-20] MEDS: MORPHINE 4 MG/ML INJ IV (00:20)
[2020-11-20 00:37] VITALS: TEMP 35.8
--- NOTE | 2020-11-20 01:15 | PC.NURSE ---
Pt bending arm multiple times occluding IV causing IV pump to alarm. Asked provider if we needed to continue IV Fluids. Provider verbally d/c iv fluids. Moved patient to hospital bed.
--- NOTE | 2020-11-20 07:58 | RT ---
Code Blue Called in ER2, upon arrival pt bagged with 100% fio2, cpr in progress and suction on and functional at [facility]. Dr. Orourke and Dr. Velásquez at bedside, LMA inserted and cpr cont. Code called by MD Orourke
--- NOTE | 2020-11-22 08:24 | PC.NURSE ---
Late entry 11/20/20 0115: Pt tossing in bed, bending arms and occluding IV fluids. Instructed patient to keep arm straight and pt stated understanding. In room multiple times prior to restart iv infusion. Asked Dr. Velásquez if fluids could be d/c'd, received verbal orders to d/c normal saline. Received verbal order to discontinue monitoring at this time. 11/20/20 0130: Due to patient boarding in department. Switched pt to an inpatient bed, instructed use of bed controls. Pt stated understanding.
--- NOTE | 2020-11-22 08:40 | PC.NURSE ---
late entry: 11/20/20 0800: technology coordinator into draw blood at 0722, called Nurse into room to patient being unresponsive, code blue called. See paper chart for code documentation.
== END 2020-11-20 11:14 | disposition expired ==
PROVIDERS: Emergency Provider Emergency Medicine; PCP Specialist
DX: R19.7 Diarrhea, unspecified (principal); N18.5 Chronic kidney disease, stage 5; Z20.822 Contact with and (suspected) exposure to COVID-19
CPT/HCPCS: 36415; 80053; 83735; 85025; 87507; 87635; 92950; 96361; 96374; 96375; 96376; 99284; C9803; J0171; J2060; J2270; J2310; J2405